=== PATIENT | male | born 1965 | race Caucasian/White ===

== ENCOUNTER 2022-03-16 06:38 | Outpatient (REF) | payer BC, SELFPAY ==
[2022-03-16 06:45] LABS: MANUAL DIFF FLAG NO
[2022-03-16 07:26] LABS: Basophils Percent Auto 0.5 % (0-2); Eosinophils Absolute Auto 0.2 X10*3/uL (0.0-0.4); Eosinophils Percent Auto 2.9 % (0-4); Hematocrit 43.4 % (42.0-52.0); Hemoglobin 15.2 g/dl (14.0-18.0); Imm Gran Abs Auto 0.02 X10*3/uL (0.00-0.03); Imm Gran Pct Auto 0.3 % (0.0-0.4); Lymphocytes Absolute Auto 1.6 X10*3/uL (1.2-4.9); Lymphocytes Percent Auto 25.3 % (20-40); Mean Corpuscular Hemoglobin 31.5 pg (27.0-33.0); Mean Corpuscular Volume 89.9 fL (80.0-98.0); Mean Platelet Volume 9.8 fL (9.4-12.4); Monocytes Absolute Auto 0.8 X10*3/uL (0.1-1.2); Monocytes Percent Auto 12.6 % (2-11); Neutrophils Absolute Auto 3.7 x10*3/uL (2.0-8.3); Neutrophils Percent Auto 58.4 % (45-73); Platelet Count 289 X10*3/uL (160-400); Red Blood Count 4.83 X10*6/uL (4.60-5.80); White Blood Count 6.3 X10*3/uL (4.8-10.8)
[2022-03-16 07:54] LABS: Alanine Aminotransferase 28 U/L (0-40); Albumin Level 4.5 g/dL (3.5-5.0); Alkaline Phosphatase 59 U/L (39-117); Anion Gap 11 (12-20); Aspartate Amino Transferase 23 U/L (5-37); Blood Urea Nitrogen 13 mg/dL (9-16); Calcium 9.1 mg/dL (8.4-10.2); Carbon Dioxide 27 mmol/L (22-29); Chloride 102 mmol/L (96-108); Cholesterol 271 mg/dL; Estimated Glomerular Filt Rate > 60; Glucose Fasting 96 mg/dL (60-99); HDL Cholesterol 61 mg/dL; LDL Cholesterol Calculated 191 mg/dl; Potassium 4.4 mmol/L (3.3-5.1); Sodium 136 mmol/L (135-145); Total Protein 6.9 g/dL (6.5-8.0); Triglycerides 98 mg/dL
[2022-03-16 08:17] LABS: Prostate Specific Antigen 1.44 ng/mL (<0.05-4.0); Vitamin D 25-OH Total 38.6 ng/mL (>30)
[2022-03-16 11:15] LABS: C Reactive Protein 1.24 mg/dL (< or = 0.50)
[2022-03-18 12:56] LABS: Lyme Abs Screen <0.90 index
== END 2022-03-16 06:39 | disposition home or self-care (01) ==
LOC: HO.LAB 06:38
PROVIDERS: PCP Internal Medicine; Visit Provider Internal Medicine
DX: Z00.00 Encounter for general adult medical examination without abnormal findings (principal); Z12.5 Encounter for screening for malignant neoplasm of prostate; R21 Rash and other nonspecific skin eruption; E55.9 Vitamin D deficiency, unspecified
CPT/HCPCS: 36415; 80053; 80061; 82306; 84153; 85025; 86140; 86617; 86618

== ENCOUNTER 2022-03-16 09:45 | Outpatient (REF) | payer BC, SELFPAY | END 2022-03-16 09:46 | disposition home or self-care (01) | LOC: HO.10HDL 09:45 | PROVIDERS: Visit Provider Internal Medicine | DX: Z13.89 Encounter for screening for other disorder (principal) ==

== ENCOUNTER 2023-05-31 06:10 | Outpatient (REF) | payer BC, SELFPAY ==
[2023-05-31 06:32] LABS: MANUAL DIFF FLAG NO
[2023-05-31 07:26] LABS: Basophils Absolute Auto 0.1 X10*3/uL (0.0-0.2); Basophils Percent Auto 1.2 % (0-2); Eosinophils Absolute Auto 0.1 X10*3/uL (0.0-0.4); Eosinophils Percent Auto 2.1 % (0-4); Hematocrit 45.2 % (42.0-52.0); Hemoglobin 15.8 g/dl (14.0-18.0); Imm Gran Abs Auto 0.02 X10*3/uL (0.00-0.03); Imm Gran Pct Auto 0.4 % (0.0-0.4); Lymphocytes Absolute Auto 1.8 X10*3/uL (1.2-4.9); Lymphocytes Percent Auto 36.8 % (20-40); Mean Corpuscular Hemoglobin 31.7 pg (27.0-33.0); Mean Corpuscular Volume 90.8 fL (80.0-98.0); Mean Platelet Volume 10.1 fL (9.4-12.4); Monocytes Absolute Auto 0.5 X10*3/uL (0.1-1.2); Monocytes Percent Auto 10.3 % (2-11); Neutrophils Absolute Auto 2.4 x10*3/uL (2.0-8.3); Neutrophils Percent Auto 49.2 % (45-73); Platelet Count 279 X10*3/uL (160-400); Red Blood Count 4.98 X10*6/uL (4.60-5.80); White Blood Count 4.8 X10*3/uL (4.8-10.8)
[2023-05-31 07:43] LABS: Alanine Aminotransferase 41 U/L (0-40); Albumin Level 4.6 g/dL (3.5-5.0); Alkaline Phosphatase 54 U/L (39-117); Anion Gap 13 (12-20); Aspartate Amino Transferase 33 U/L (5-37); Bilirubin Total 1.2 mg/dL (0.0-1.0); Blood Urea Nitrogen 13 mg/dL (9-16); Calcium 10.1 mg/dL (8.4-10.2); Carbon Dioxide 28 mmol/L (22-29); Chloride 102 mmol/L (96-108); Cholesterol 220 mg/dL (<200); Estimated Glomerular Filt Rate > 60; Glucose Fasting 93 mg/dL (60-99); HDL Cholesterol 70 mg/dL (>40); LDL Cholesterol Calculated 127 mg/dL (<100); Sodium 139 mmol/L (135-145); Triglycerides 115 mg/dL (<150)
[2023-05-31 07:58] LABS: Prostate Specific Antigen 1.54 ng/mL (<0.05-4.0)
== END 2023-05-31 06:11 | disposition home or self-care (01) ==
LOC: HO.LAB 06:10
PROVIDERS: PCP Internal Medicine; Visit Provider Internal Medicine
DX: E78.00 Pure hypercholesterolemia, unspecified (principal); R35.1 Nocturia; Z86.010 Personal history of colon polyps; Z12.5 Encounter for screening for malignant neoplasm of prostate
CPT/HCPCS: 36415; 80053; 80061; 84153; 85025

== ENCOUNTER 2023-06-10 08:51 | Outpatient (AMB) | payer BC, SELFPAY ==
--- NOTE | 2023-06-10 08:55 | MHC.OFFVIS ---
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 Patient reports pain started after bowling sometime around December early January. He rested his arm hoping his pain would subside however his pain continues. He feels a tightness in his forearm and occasional tingling in his fingers. At times his muscle will bulge out to the size of a baseball with certain movement/use of arm. 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 He states he has pain in his arm which is aggravated with lifting weight, running, or opening a can and alleviates with resting. He also c/o popping of his arm with moving a chair or opening a jar and he does experiences tightness in his forearm and occasional tingling in his fingers. He reports his muscles occasional bulging out to the size of a baseball with the use of his arm as well. [facility] Social History (Updated 06/10/23 @ 09:00 by RANULFO Donahue) Patient Tobacco Use Status: Never used Tobacco Current occupational status: employed Current occupation: [employer] right hand dominant Review of Systems Const All systems reviewed & are unremarkable except as noted in HPI and below Physical Exam Vital Signs: BMI result Body Mass Index 26.6 Const General: cooperative, healthy appearing, comfortable, no acute distress, well developed and alert Orientation/consciousness: patient oriented x3 HEENT Head: Yes normal to inspection, Yes normocephalic and Yes atraumatic Eyes General: appearance normal, both eyes and all related structures Resp Effort & Inspection: normal respiratory effort and able to speak in complete sentences Cardio Rate: regular rate Peripheral pulses: Peripheral pulses 2+ throughout GI Palpation (GI): Soft to palpation Skin Lesions: no lesions Rashes: no rashes Neuro General: patient oriented x3 Extrem Other: Right or Left or Bilateral shoulder normal to inspection. Mild tenderness over the bicep tendon with defect over the proximal aspect with notable muscle bulge. Forward flexion to 175, external rotation to 90, internal rotation to S1. 5/5 RTC strength. Positive Truman's. Negative Pablo and cross body abduction. NVI. Assessment & Plan Assessment & Plan (1) Biceps tendon tear: Code(s): S46.219A - Strain of muscle, fascia and tendon of other parts of biceps, unspecified arm, initial encounter Plan We had a lengthy discussion today about the extent of his injury. I did explain that with his injury onset which begin in January of this year, the tendon is likely retracted and scarred down to surrounding tissue. I do not feel it is necessary to undergo any type of surgical intervention as he should fully recover from this. I strongly encourage physical therapy to work on ROM and proper RTC and periscapular strengthening. I would expect that he would be able to get back to normal activities with limitations. If symptoms persist or worsens in 6 weeks, patient will contact the office for further evaluation, otherwise follow-up as needed. Orders: Orders PT Evaluation and Treatment Today S46.219A - Strain of muscle, fascia and tendon of other parts of biceps, unspecified arm, initial encounter Patient Instructions: Scribed for Nena Vaughan PA-C, by Redd Theodore medical records coordinator, on 06/10/2023 at 9:00 AM EST. INena PA-C, have personally reviewed and agree with the information entered by the scribe. Coding Level of Care Code New Pt Level 3 (63960) Diagnoses Biceps tendon tear S46.219A
[2023-06-10 08:59] VITALS: BMI 26.6
== END 2023-06-10 12:14 | disposition home or self-care (01) ==
PROVIDERS: PCP Internal Medicine; Visit Provider Physician Assistant
DX: S46.211A Strain of muscle, fascia and tendon of other parts of biceps, right arm, initial encounter (principal)
CPT/HCPCS: 99203

== ENCOUNTER → 2023-06-10 08:51 | Outpatient (BNVA) | payer BC, SELFPAY | PROVIDERS: PCP Internal Medicine; Visit Provider Physician Assistant ==

== ENCOUNTER 2023-06-24 10:23 | Outpatient (REF) | payer BC, SELFPAY ==
--- NOTE | ~2023-06-24 | MR_ITS ---
EXAMINATION: MR SHOULDER WITHOUT CONTRAST, RIGHT CLINICAL INFORMATION: Right shoulder pain following an injury on 01/26/2023. Weakness. Biceps popping. COMPARISON: Right shoulder radiographs dated 01/01/2009. TECHNIQUE: MRI of the shoulder without contrast was performed on a high-field scanner. FINDINGS: ROTATOR CUFF: Near complete, full-thickness tear of the supraspinatus tendon which is significantly attenuated. There may be a few thin posterior bursal surface tendon fibers remaining intact. Articular surface tearing extends to the anterior aspect of the infraspinatus tendon. Overall tearing appears to measure up to 3.6 x 4.3 cm (AP x ML) with the torn articular surface tendon fibers retracted to the glenohumeral articulation. No associated edema. Findings likely indicate a chronic tear. Mild subscapularis tendinosis. Mild supraspinatus muscle atrophy. BICEPS: Absence of the proximal long head biceps tendon, likely indicating a complete tear and tendon retraction. CORACOACROMIAL ARCH: The undersurface of the acromion is curved with no subacromial spur. Mild acromioclavicular osteoarthritis. LABRUM/CAPSULE: Heterogeneously increased T2 signal throughout the superior and posterosuperior labrum, likely indicating nondisplaced degenerative tearing. Somewhat linear increased T2 signal within the undersurface of the anterior and anteroinferior labrum, likely indicating a nondisplaced tear. Intact inferior joint capsule. GLENOHUMERAL JOINT/MARROW: Superior subluxation of the humeral head related to the rotator cuff tendon tear. Intact articular cartilage. Trace joint effusion. MR/MR shoulder RT wo con IMPRESSION: 1. Near-complete, full-thickness tear of the supraspinatus tendon with a few thin posterior bursal surface tendon fibers remaining intact. Articular surface tearing extends to the anterior aspect of the infraspinatus tendon. The torn articular surface tendon fibers are retracted to the glenohumeral articulation. Mild supraspinatus muscle atrophy. Mild subscapularis tendinosis. 2. Absence of the proximal long head biceps tendon, likely indicating a complete tear and tendon retraction. 3. Mild acromioclavicular osteoarthritis. 4. Nondisplaced degenerative tearing of the superior, posterosuperior, and anteroinferior labrum. 5. Superior subluxation of the humeral head related to the rotator cuff tendon tear. Trace glenohumeral joint effusion.
== END 2023-06-24 10:24 | disposition home or self-care (01) ==
LOC: HO.MRI 10:23
PROVIDERS: PCP Internal Medicine; Visit Provider Physician Assistant
DX: M75.80 Other shoulder lesions, unspecified shoulder (principal)
CPT/HCPCS: 73221

== ENCOUNTER 2023-07-08 12:34 | Outpatient (AMB) | payer BC, SELFPAY ==
--- NOTE | 2023-07-08 12:36 | MHC.OFFVIS ---
Intake Vital Signs 07/08/23 12:37 Height 5 ft 5 in Weight 160 lb BMI 26.6 Intake Visit Reasons: OV- RTC tendonitis, MRI review Intake Note: Deon is a 57 year old right hand dominant male who presents today for an MRI review of his right shoulder Allergies No Known Allergies Allergy (Verified 06/10/23 08:59) HPI OV- RTC tendonitis, MRI review HPI Details Deon is a 57 year old man who presents for an MRI review of his right shoulder. He complains of pain with daily activity, worse with overhead activity and at night. he says his pain began after an injury while bowling in 01/2023. 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 He says he re-injured his arm again recently while opening a bag of chips. He says he felt a painful popping sensation in his biceps and felt an increase in pain. He says he does have a Tray deformity in his arm, and has for several months now. He used to be active with weight-lifting when he was younger as well. He has several questions concerning surgery vs PT, and his level of function. [facility] Social History (Updated 06/10/23 @ 09:00 by Nhung Ackerman Prasanna) Patient Tobacco Use Status: Never used Tobacco Current occupational status: employed Current occupation: [employer] right hand dominant Review of Systems Const All systems reviewed & are unremarkable except as noted in HPI and below Physical Exam Vital Signs: BMI result Body Mass Index 26.6 Const General: no acute distress, alert and awake Orientation/consciousness: patient oriented x3 HEENT Head: Yes normocephalic and Yes atraumatic Eyes EOM: EOMs intact bilaterally Resp Effort & Inspection: normal respiratory effort and able to speak in complete sentences Cardio Jugular venous distension: no JVD Skin General skin exam: turgor normal Rashes: no rashes Neuro General: patient oriented x3 Extrem Other: Right Shoulder: TTP proximal biceps with + tray deformity 4+/5 EC Neg lift off -h/n Psych Appearance: grossly normal Affect: normal affect Attitude: cooperative Results Reviewed Results Reviewed: I personally reviewed relevant MR images 1. Near-complete, full-thickness tear of the supraspinatus tendon with a few thin posterior bursal surface tendon fibers remaining intact. Articular surface tearing extends to the anterior aspect of the infraspinatus tendon. The torn articular surface tendon fibers are retracted to the glenohumeral articulation. Mild supraspinatus muscle atrophy. Mild subscapularis tendinosis. 2. Absence of the proximal long head biceps tendon, likely indicating a complete tear and tendon retraction. 3. Mild acromioclavicular osteoarthritis. 4. Nondisplaced degenerative tearing of the superior, posterosuperior, and anteroinferior labrum. 5. Superior subluxation of the humeral head related to the rotator cuff tendon tear. Trace glenohumeral joint effusion. Assessment & Plan Assessment & Plan (1) Right rotator cuff tear: Code(s): M75.101 - Unspecified rotator cuff tear or rupture of right shoulder, not specified as traumatic Plan: This is a 57 year old man with a near-complete full-thickness tear of the right RTC, as well as a biceps tendon tear with retraction. he has pain with daily activity, worse with picking an object up, overhead activity, and at night. He denies any prior treatment options and feels limited in his ADLs. I discussed his diagnosis and treatment options. I recommend a right shoulder RTC repair. I also explained that his biceps is not repairable and that this will likely not result in any additional morbidity. I discussed the risks, benefits, and alternatives including, but not limited to, the risk of pain, infection, stiffness, need for further surgery as well as potential medical complications such as blood clots, pulmonary embolism and cardiac complications. I discussed the recovery timeline and process as well as the importance of PT. Deon is a good candidate for this surgery. Fill of seems on the fence regarding surgery and is incredulous that his rotator cuff is in need of repair and that his biceps tendon is unrepairable. He will consider his options and get back to me if you would like to discuss further or go forward with surgery. (2) Biceps tendon tear: Code(s): S46.219A - Strain of muscle, fascia and tendon of other parts of biceps, unspecified arm, initial encounter Plan: With Tray deformity Plan Scribed for Campbell Adrian MD by Aly Ayala, medical assistant supervisor, on 07/08/23 at 12:50 PM, EST. Coding Level of Care Code Est Pt Level 4 (82613) Diagnoses Right rotator cuff tear M75.101 Biceps tendon tear S46.219A
[2023-07-08 12:37] VITALS: BMI 26.6
== END 2023-07-08 13:21 | disposition home or self-care (01) ==
PROVIDERS: PCP Internal Medicine; Visit Provider Orthopaedic Surgery
DX: M75.101 Unspecified rotator cuff tear or rupture of right shoulder, not specified as traumatic (principal); S46.211A Strain of muscle, fascia and tendon of other parts of biceps, right arm, initial encounter
CPT/HCPCS: 99214

== ENCOUNTER → 2023-07-08 12:34 | Outpatient (BNVA) | payer BC, SELFPAY | PROVIDERS: PCP Internal Medicine; Visit Provider Orthopaedic Surgery ==

== ENCOUNTER 2023-07-19 06:01 | Day surgery (SDC) | payer BC, SELFPAY ==
--- NOTE | 2023-07-18 09:33 | P.CONAN_ITS ---
Documented by User: Jania Bello NP 07/18/23 09:33 HPI - Anesthesia Eval Consult details Narrative: 57yo M for Right Arthroscopic Rotator Cuff Repair [facility] Active Problems Active Problems: All Active Problems (Updated 07/08/23 @ 12:46 by Aly Ayala) Right rotator cuff tear (Acute) Rotator cuff tendonitis (Acute) Biceps tendon tear (Acute) Past Medical History Medical History (Updated 07/18/23 @ 13:17 by Clair Norris RN) Vitamin D deficiency Fatigue Hypercholesteremia History of colon polyps GERD (gastroesophageal reflux disease) Social History Social History (Updated 06/10/23 @ 09:00 by RANULFO Donahue) Patient Tobacco Use Status: Never used Tobacco Current occupational status: employed Current occupation: [employer] right hand dominant Meds Allergies Allergy/AdvReac Type Severity Reaction Status Date / Time No Known Allergies Allergy Verified 06/10/23 08:59 Home Medications Medication Instructions Recorded Confirmed Last Taken Type atorvastatin 20 mg tablet 20 mg PO DAILY 06/10/23 Unknown History Exam Pertinent Lab Results Pertinent Lab Results: Laboratory Tests 05/31/23 06:30 WBC 4.8 Hgb 15.8 Hct 45.2 Plt Count 279 Sodium 139 Potassium 4.0 Chloride 102 Carbon Dioxide 28 BUN 13 Creatinine 0.82 Assessment and Plan Assessment Anesthesia Assessment: Chart Reviewed Documented by User: Jong Shaw MD 07/18/23 19:31 [facility] Past Medical History Medical History (Updated 07/18/23 @ 13:17 by Clair Norris RN) Vitamin D deficiency Fatigue Hypercholesteremia History of colon polyps GERD (gastroesophageal reflux disease) Family History Family history of problems with anesthesia: No Surgical History History of Problems with Anesthesia: No Social History Social History (Updated 06/10/23 @ 09:00 by RANULFO Donahue) Patient Tobacco Use Status: Never used Tobacco Current occupational status: employed Current occupation: [employer] right hand dominant Meds Allergies Allergy/AdvReac Type Severity Reaction Status Date / Time No Known Allergies Allergy Verified 06/10/23 08:59 Home Medications Medication Instructions Recorded Confirmed Last Taken Type atorvastatin 20 mg tablet 20 mg PO DAILY 06/10/23 Unknown History Exam Airway Mallampati Class: II TM Dist: >3cm Neck ROM: Full Heart: rrr Lungs: cta Assessment and Plan Assessment Anesthesia Assessment: Anesthesia Plan Discussed Final Anesthetic Review Family History of Problems with Anesthesia: No History of Problems with Anesthesia: No NPO: Yes ASA Class: II Final Preanesthetic Review: No Changes in Pt Med Stat, Meds/Allgs Chart Reviewed, Consent Obtained/Reviewed and Anes Risks/Benef Reviewed Patient Risk: Intermediate Procedure Risk: Intermediate Anesthetic Plan Anesthetic Plan: GA and Agree w/ Assess. and Plan Disposition: Standard PACU
[2023-07-19] VITALS (7 sets, daily range): BP systolic 136–159; BP diastolic 79–86; PULSE 59–68; RESP 15–16; TEMP 36.1–36.6; O2SAT 92–98; BMI 27.0
[2023-07-19] MEDS: Lactated Ringers 1,000 ML 100 ML IVCONT (06:53)
--- NOTE | 2023-07-19 09:32 | PM.OP ---
Brief Operative Note Date of Service: 07/19/23 Pre-op diagnosis: Right rtc tear Post-op diagnosis: same Procedure: Right RTC repair Implants: Londono [employer] Nephew helacoil medial row 4,75 double loaded x 3 and 5.0 knotless lateral row x 3 Surgeon: Campbell Adrian MD Anesthesia: GETA and regional Was an Yard Labor Supervisor used for this Procedure?: Yes Yard Labor Supervisor: Nena Vaughan Estimated blood loss (mL): 20 Tourniquet time (min): 20 Pathology: none sent Condition: stable Disposition: PACU
--- NOTE | 2023-08-04 17:39 | W.PM.OPN ---
Operative Note Operative Note Date of Service: 07/19/23 Narrative: Date of Service: 07/19/23 Pre-op diagnosis: Right rtc tear Post-op diagnosis: same Procedure: Right RTC repair Implants: Londono and Nephew helacoil medial row 4,75 double loaded x 3 and 5.0 knotless lateral row x 3 Surgeon: Campbell Adrian MD Anesthesia: GETA and regional Was an Turf And Grounds Supervisor used for this Procedure?: Yes Turf And Grounds Supervisor: Nena Vaughan Estimated blood loss (mL): 20 Tourniquet time (min): 20 Pathology: none sent Condition: stable Disposition: PACU Procedure in detail: Patient was brought to the operating room and placed the the beach chair position. All bony prominences were well padded and the limb was prepped and draped in standard sterile fashion. A time out was called to identify proper site, proper procedure and proper surgeon. IV antibiotics per weight were administered. I began by making a posterolateral stab incision with a 15 blade. A blunt trochar was placed into the glenohumeral joint and I insufflated the joint with saline and a 30 degree arthroscope was placed. I established an outside- in anterior portal just distal to the biceps tendon. I then began my inspection of the glenohumeral joint. There was a absent biceps tendon. The cartilage and labral surfaces were pristine. There were minimal cartilage changes at the inferior glenoid without humeral head changes. There was a full thickness undersurface RTC tear. The subcapularis was intact. I then removed the trochar and entered the subacromial space. A direct lateral portal was then established and I performed a bursectomy. The cuff was then examined. There was a full thickness tear of the supra and infraspinatus without retraction. The tear was mobile. I placed two medial row double loaded anchors after using a tap just adjacent to the articular cartilage and then brought the suture limbs ( 8) through the medial cuff. I then debrided the bare area down to bleeding bone and, using a cross bridge configuration, brought 4 limbs to each of two lateral 5.0 anchors. This re-approximated the cuff anatomy anatomically. Once I was satisfied with the repair final images were captured and I removed all instrumentation. Portals were closed with nylon. Patient was placed in an abduction sling, extubated and brought to the recovery room in stable condition. There were no known complications. LARGE RTC REPAIR PROTOCOL
== END 2023-07-19 12:05 | disposition home or self-care (01) ==
PROVIDERS: PCP Internal Medicine; Visit Provider Orthopaedic Surgery
PROC: (CPT 29827; principal; 2023-07-19 07:30)
DX: M75.121 Complete rotator cuff tear or rupture of right shoulder, not specified as traumatic (principal); K21.9 Gastro-esophageal reflux disease without esophagitis; E78.00 Pure hypercholesterolemia, unspecified; E55.9 Vitamin D deficiency, unspecified
CPT/HCPCS: 29827; C1713; J0131; J0171; J0665; J0690; J1100; J1885; J2405; J2704

== ENCOUNTER → 2023-07-19 06:01 | Outpatient (BNV) | payer BC, SELFPAY | PROVIDERS: PCP Internal Medicine; Visit Provider Orthopaedic Surgery | DX: S46.011A Strain of muscle(s) and tendon(s) of the rotator cuff of right shoulder, initial encounter (principal) | CPT/HCPCS: 29827 ==

== ENCOUNTER 2023-07-25 12:54 | Outpatient (AMB) | payer BC, SELFPAY ==
--- NOTE | 2023-07-25 13:10 | A.OFFVIS_ITS ---
Intake Intake Visit Reasons: PO Rt RTC Repair 07/19/23 NE Intake Note: Deon 57 yr old male presents today for his P/O right RTC from 07/19/23. States his has some soreness and pain increase with movement. Over all doing well. Allergies No Known Allergies Allergy (Verified 07/25/23 13:11) HPI PO Rt RTC Repair 07/19/23 NE HPI Details 57-year-old male who returns to the [facility] today for post-op right RTC repair, 07/19/[address] Adrian. He states he has pain and soreness in his shoulder which is aggravated with movement. He has not yet started with physical therapy for his right shoulder. He is doing well overall and has no concerns today. [facility] Medical History (Updated 07/25/23 @ 14:58 by Nena Vaughan PA-C) Vitamin D deficiency Fatigue Hypercholesteremia History of colon polyps GERD (gastroesophageal reflux disease) Surgical History (Updated 07/19/23 @ 06:46 by Clair Norris RN) History of colonoscopy Patient Tobacco Use Status: Never used Tobacco Current occupational status: employed Current occupation: [employer] right hand dominant Review of Systems Const All systems reviewed & are unremarkable except as noted in HPI and below Physical Exam Extrem Other: Right shoulder: Incision clean, dry and intact. No swelling or drainage. He has good sensation. Results Reviewed Results Reviewed: Date of Service: 07/19/23 Pre-op diagnosis: Right rtc tear Post-op diagnosis: same Procedure: Right RTC repair Implants: Londono [employer] Nephew helacoil medial row 4,75 double loaded x 3 and 5.0 knotless lateral row x 3 Surgeon: Campbell Adrian MD Assessment & Plan Assessment & Plan (1) Right rotator cuff tear: Code(s): M75.101 - Unspecified rotator cuff tear or rupture of right shoulder, not specified as traumatic Qualifiers: Rotator cuff tear extent: complete Rotator cuff tear trauma status: nontraumatic Qualified Code(s): M75.121 - Complete rotator cuff tear or rupture of right shoulder, not specified as traumatic (2) Biceps tendon tear: Code(s): S46.219A - Strain of muscle, fascia and tendon of other parts of biceps, unspecified arm, initial encounter Plan Sutures removed today, steri strips applied. We thoroughly went through the postop images and discussed procedure in detail. He will begin physical therapy to work on ROM and periscapular stabilization. He will remain out of work till I see him back in [address] Adrian, sooner if needed. Medications: Refilled oxycodone Partial Fill upon patient request. 5 mg PO Q4H PRN 42 tabs 0RF pain 7 days Patient Instructions: Scribed for Nena Vaughan PA-C, by Redd Theodore spanish medical interpreter, on 07/25/2023 at 1:00 PM EST. I, Nena Vaughan PA-C, have personally reviewed and agree with the information entered by the scribe. Coding Level of Care Code Global (12607) Diagnoses Nontraumatic complete tear of right rotator cuff M75.121 Rotator cuff tear extent: complete Rotator cuff tear trauma status: nontraumatic Biceps tendon tear S46.219A
== END 2023-07-25 13:51 | disposition home or self-care (01) ==
PROVIDERS: PCP Internal Medicine; Visit Provider Physician Assistant
DX: M75.121 Complete rotator cuff tear or rupture of right shoulder, not specified as traumatic (principal); S46.219A Strain of muscle, fascia and tendon of other parts of biceps, unspecified arm, initial encounter
CPT/HCPCS: 99024

== ENCOUNTER → 2023-07-25 12:54 | Outpatient (BNVA) | payer BC, SELFPAY | PROVIDERS: PCP Internal Medicine; Visit Provider Physician Assistant ==

== ENCOUNTER 2023-08-24 10:43 | Outpatient (AMB) | payer BC, SELFPAY ==
--- NOTE | 2023-08-24 10:46 | A.OFFVIS_ITS ---
Intake Intake Visit Reasons: PO Rt RTC Repair 07/19/23 NE Intake Note: Deon monreal 57 year old male presents today for a post operative right RTC repair, DOS 07/19/23 NE. Patient reports his pain mostly comes after attending PT. He has concerns of a lot of pain in his bicep area. Allergies No Known Allergies Allergy (Verified 08/24/23 10:49) HPI PO Rt RTC Repair 07/19/23 NE HPI Details 57-year-old male who returns to the [facility] today for post-op right RTC repair, 07/19/[address] Adrian. He continues to have pain and weakness in his shoulder which mostly comes after attending physical therapy. He also c/o chronic pain in his bicep region. He also finds difficulty with moving around the bed trying to sit up. He takes ibuprofen for his pain. He is doing well otherwise and has no other concerns today. He has a computer desk job. [facility] Medical History (Updated 07/25/23 @ 14:58 by Nena Vaughan PA-C) Vitamin D deficiency Fatigue Hypercholesteremia History of colon polyps GERD (gastroesophageal reflux disease) Surgical History History of colonoscopy Social History Patient Tobacco Use Status: Never used Tobacco Current occupational status: employed Current occupation: [employer], [employer] right hand dominant Review of Systems Const All systems reviewed & are unremarkable except as noted in HPI and below Physical Exam Extrem Other: Right shoulder: Incision well healed. FF to 95, ER to 30. He has good sensation. Assessment & Plan Assessment & Plan (1) Right rotator cuff tear: Code(s): M75.101 - Unspecified rotator cuff tear or rupture of right shoulder, not specified as traumatic Qualifiers: Rotator cuff tear extent: complete Rotator cuff tear trauma status: nontraumatic Qualified Code(s): M75.121 - Complete rotator cuff tear or rupture of right shoulder, not specified as traumatic (2) Biceps tendon tear: Code(s): S46.219A - Strain of muscle, fascia and tendon of other parts of biceps, unsp ecified arm, initial encounter Plan He will continue to work with physical therapy. I reassured him that he is progressing at the expected rate he should be with his motion and strength. He has concerns about his proximal bicep, he feels that subluxes when he tries to do any type motion that require bare minimum of strength. I explain to him that this may be some scar tissue that has been formed over the proximal bicep tendon as it was torn and retracted for several month. I reassured him that progressing to strength train can help with this. He can discontinue use of sling and begin driving as long as he feels safe and comfortable. 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 I would like to see him back in [address] Adrian, sooner if needed. Patient Instructions: Scribed for Nena Vaughan PA-C, by [facility] representative, on 08/24/2023 at 11:00 AM EST. I, Nena Vaughan PA-C, have personally reviewed and agree with the information entered by the scribe. Coding Level of Care Code Global (31600) Diagnoses Nontraumatic complete tear of right rotator cuff M75.121 Rotator cuff tear extent: complete Rotator cuff tear trauma status: nontraumatic Biceps tendon tear S46.219A
== END 2023-08-24 11:18 | disposition home or self-care (01) ==
PROVIDERS: PCP Internal Medicine; Visit Provider Physician Assistant
DX: M75.121 Complete rotator cuff tear or rupture of right shoulder, not specified as traumatic (principal); S46.219A Strain of muscle, fascia and tendon of other parts of biceps, unspecified arm, initial encounter
CPT/HCPCS: 99024

== ENCOUNTER → 2023-08-24 10:43 | Outpatient (BNVA) | payer BC, SELFPAY | PROVIDERS: PCP Internal Medicine; Visit Provider Physician Assistant ==

== ENCOUNTER 2023-09-26 14:10 | Outpatient (AMB) | payer BC, SELFPAY ==
--- NOTE | 2023-09-26 14:24 | A.OFFVIS_ITS ---
Intake Intake Visit Reasons: PO Rt RTC Repair 07/19/23 NE Intake Note: Deon a 57 year old male presents today for a post operative right RTC repair, DOS 07/19/23 NE. 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 He was aking chili about 2 weeks ago, while breaking up mean in the bpan he felt a sharp twinge in the bicep, aroun this same time they started new exercises in PT so he is unsure of the cause. Patient reports that he is having pain that is felt all the time, he feels that he is regressing a bit. His pain is now limiting him in PT. Denies numbness and tingling Allergies No Known Allergies Allergy (Verified 08/24/23 10:49) HPI PO Rt RTC Repair 07/19/23 NE HPI Details Deon is a 57 year old man who presents ~9 weeks S/P right RTC repair. He says he has had worsening pain in the last few weeks. He is unsure if this is related to starting new exercises in PT or from home activities. He now complains of constant pain and he is worried he may be regressing in his progress. He denies any numbness and tingling, and feels limited in his ability to perform some exercises in PT. He has returned to work, 4 hours daily, full duty at a desk. He feels this is going well. [facility] Medical History (Updated 07/25/23 @ 14:58 by Nena Vaughan PA-C) Vitamin D deficiency Fatigue Hypercholesteremia History of colon polyps GERD (gastroesophageal reflux disease) Surgical History History of colonoscopy Social History Patient Tobacco Use Status: Never used Tobacco Current occupational status: employed Current occupation: [employer], [employer] right hand dominant Review of Systems Const All systems reviewed & are unremarkable except as noted in HPI and below Physical Exam Const General: no acute distress, alert and awake Orientation/consciousness: patient oriented x3 HEENT Head: Yes normocephalic and Yes atraumatic Eyes EOM: EOMs intact bilaterally Resp Effort & Inspection: normal respiratory effort and able to speak in complete sentences Cardio Jugular venous distension: no JVD Skin General skin exam: turgor normal Rashes: no rashes Neuro General: patient oriented x3 Extrem Other: subjective pain over anterior humerus/ biceps muscle belly Psych Appearance: grossly normal Affect: normal affect Attitude: cooperative Assessment & Plan Assessment & Plan (1) Right rotator cuff tear: Code(s): M75.101 - Unspecified rotator cuff tear or rupture of right shoulder, not specified as traumatic Qualifiers: Rotator cuff tear extent: complete Rotator cuff tear trauma status: nontraumatic Qualified Code(s): M75.121 - Complete rotator cuff tear or rupture of right shoulder, not specified as traumatic Plan: Increased pain after ramping up with PT. Needs to follow large RTC repair protocol. eems to be having idiopathic biceps cramping. (2) Biceps tendon tear: Code(s): S46.219A - Strain of muscle, fascia and tendon of other parts of biceps, unspecified arm, initial encounter Plan Prepared for Campbell Adrian MD by Aly Ayala, medical affairs specialist, on 09/26/23 at 2:37 PM, EST. Coding Level of Care Code Global (29325) Diagnoses Nontraumatic complete tear of right rotator cuff M75.121 Rotator cuff tear extent: complete Rotator cuff tear trauma status: nontraumatic Biceps tendon tear S46.219A
== END 2023-09-26 15:23 | disposition home or self-care (01) ==
PROVIDERS: PCP Internal Medicine; Visit Provider Orthopaedic Surgery
DX: M75.121 Complete rotator cuff tear or rupture of right shoulder, not specified as traumatic (principal); S46.219A Strain of muscle, fascia and tendon of other parts of biceps, unspecified arm, initial encounter
CPT/HCPCS: 99024

== ENCOUNTER → 2023-09-26 14:10 | Outpatient (BNVA) | payer BC, SELFPAY | PROVIDERS: PCP Internal Medicine; Visit Provider Orthopaedic Surgery ==

== ENCOUNTER 2023-10-27 14:53 | Outpatient (AMB) | payer BC, SELFPAY ==
--- NOTE | 2023-10-27 14:59 | MHC.OFFVIS ---
Intake Intake Visit Reasons: ov- Rt RTC Repair 07/19/23 NE Intake Note: Deon a 57 year old male presents today for a post operative right RTC repair, DOS 07/19/23 NE. At his last visit it was dicussed that he must follow RTC physical therapy protocol Allergies No Known Allergies Allergy (Verified 08/24/23 10:49) HPI ov- Rt RTC Repair 07/19/23 NE HPI Details Deon is a 57 year old man who presents ~13 weeks S/P right RTC repair. He says he has been doing better with the change in PT protocol. [facility] Medical History Vitamin D deficiency Fatigue Hypercholesteremia History of colon polyps GERD (gastroesophageal reflux disease) Surgical History History of colonoscopy Social History Patient Tobacco Use Status: Never used Tobacco Current occupational status: employed Current occupation: [employer], [email or web address] right hand dominant Review of Systems Const All systems reviewed & are unremarkable except as noted in HPI and below Physical Exam Const General: no acute distress, alert and awake Orientation/consciousness: patient oriented x3 HEENT Head: Yes normocephalic and Yes atraumatic Eyes EOM: EOMs intact bilaterally Resp Effort & Inspection: normal respiratory effort and able to speak in complete sentences Cardio Jugular venous distension: no JVD Skin General skin exam: turgor normal Rashes: no rashes Neuro General: patient oriented x3 Extrem Other: No pain with ROM Psych Appearance: grossly normal Affect: normal affect Attitude: cooperative Assessment & Plan Assessment & Plan (1) Right rotator cuff tear: Code(s): M75.101 - Unspecified rotator cuff tear or rupture of right shoulder, not specified as traumatic Qualifiers: Rotator cuff tear extent: complete Rotator cuff tear trauma status: nontraumatic Qualified Code(s): M75.121 - Complete rotator cuff tear or rupture of right shoulder, not specified as traumatic Plan: Large RTC tear Continue PT and HEP No heavy lifting (2) Biceps tendon tear: Code(s): S46.219A - Strain of muscle, fascia and tendon of other parts of biceps, unspecified arm, initial encounter Plan Prepared for Campbell Adrian MD by Aly Ayala, medical doctor nuclear medicine, on 10/27/23 at 3:02 PM, EST. Coding Level of Care Code Global (78983) Diagnoses Nontraumatic complete tear of right rotator cuff M75.121 Rotator cuff tear extent: complete Rotator cuff tear trauma status: nontraumatic Biceps tendon tear S46.219A
== END 2023-10-27 15:35 | disposition home or self-care (01) ==
PROVIDERS: PCP Internal Medicine; Referring Provider Internal Medicine; Visit Provider Orthopaedic Surgery
DX: S46.011D Strain of muscle(s) and tendon(s) of the rotator cuff of right shoulder, subsequent encounter (principal)
CPT/HCPCS: 99213

== ENCOUNTER → 2023-10-27 14:53 | Outpatient (BNVA) | payer BC, SELFPAY | PROVIDERS: PCP Internal Medicine; Visit Provider Orthopaedic Surgery ==

== ENCOUNTER 2023-12-01 12:46 | Outpatient (AMB) | payer BC, SELFPAY ==
--- NOTE | 2023-12-01 12:58 | MHC.OFFVIS ---
Intake Intake Visit Reasons: O/V Rt RTC Repair 07/19/23 NE Intake Note: Deon a 57 year old male presents today for a post operative right RTC repair, DOS 07/19/23 NE. at his last visit he was instructed to continue PT and do no heavy lifting. 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 He was working his night job holding a shoe box when he heard or felt a pop in his right shoulder. He had difficulty abducting his arm the following day but continue with physical therapy and it has improved but he was a little worried about injuring the remaining head of the proximal biceps. [facility] Medical History Vitamin D deficiency Fatigue Hypercholesteremia History of colon polyps GERD (gastroesophageal reflux disease) Surgical History History of colonoscopy Social History Patient Tobacco Use Status: Never used Tobacco Current occupational status: employed Current occupation: [employer] right hand dominant Physical Exam Extrem Other: Smooth arc of abduction to 90 degrees with negative empty can Assessment & Plan Assessment & Plan (1) S/P rotator cuff repair: Code(s): Z98.890 - Other specified postprocedural states Plan: Status post rotator cuff repair. A large repair and is doing well. On exam I am pleased with his progress and recommend he continue strengthening gradually add. (2) Biceps tendon tear: Code(s): S46.219A - Strain of muscle, fascia and tendon of other parts of biceps, unspecified arm, initial encounter Plan: Patient has a an absent long head of the biceps and I do not think he injured the short head. Continue therapy as tolerated. He has a follow-up scheduled. Coding Level of Care Code Est Pt Level 3 (83799) Diagnoses S/P rotator cuff repair Z98.890 Biceps tendon tear S46.219L
== END 2023-12-01 15:00 | disposition home or self-care (01) ==
PROVIDERS: PCP Internal Medicine; Referring Provider Internal Medicine; Visit Provider Orthopaedic Surgery
DX: S46.211A Strain of muscle, fascia and tendon of other parts of biceps, right arm, initial encounter (principal)
CPT/HCPCS: 99213

== ENCOUNTER → 2023-12-01 12:46 | Outpatient (BNVA) | payer BC, SELFPAY | PROVIDERS: PCP Internal Medicine; Visit Provider Orthopaedic Surgery ==

== ENCOUNTER 2023-12-08 17:00 | Outpatient (RCR) | payer BC, SELFPAY ==
--- NOTE | 2023-07-29 12:41 | MHC.PT.EP ---
[facility] [place] Office [place] Office [place] Office [address] Greg Smith [address] [phone] F: [phone] F: [phone] F: [phone] F: [phone] Physical Therapy Plan of Care Date of Evaluation: 07/28/23 Date of Surgery: 07/19/23 Diagnosis: s/p massive rtc repair - supraspinatus with sad on 07/19 (RL) Assessment: pt is a 57 y/o male presenting to physical therapy w/ referring diagnosis of s/p massive rtc repair - supraspinatus with sad. Impairments include pain, decreased range of motion, decreased strength, impaired functional mobility, impaired postural awareness, and altered ambulation mechanics. pt is a good candidate for skilled PT due to age, potential remediation of impairments, typical disease/condition progression and prognosis, comorbidities, and motivation. pt would benefit from skilled PT intervention to provide a tailored strengthening and stretching exercise program, functional training, gait training, postural re-training, neuromuscular re-education, modalities as needed for pain, equipment safety demonstration. Frequency and Duration: The patient will be seen 2x/wk for 8 wks Short Term Goals: pt will be I w/ HEP to promote self-management of condition. pt will improve R shoulder flexion PROM by 20 degrees to progress per protocol. Machine Operator Packaging Goals: pt will improve R shoulder strength to at least 4/5 in all planes to promote return to upper body ADLs. pt will report a statistically significant improvement in self-reported outcome measure, SPADI, to promote return to PLOF. Treatment Plan: Modalities to reduce pain, spasms and effusion. Manual therapy to restore motion and function. Therapeutic exercise to improve strength and flexibility. Neuromuscular re-education for posture and balance. Therapeutic activities to return to functional activities of daily living. Electronically signed by: Giselle Anton PT, DPT Please sign and return to therapist. Thank you for your referral.
--- NOTE | 2023-12-30 10:16 | MHC.PT.DC ---
[facility] [place] [facility] [place] [facility] [place] [facility] [address] Greg Smith [address] [phone] F: [phone] F: [phone] F: [phone] F: [phone] Physical Therapy Discharge Report Diagnosis: s/p massive rtc repair - supraspinatus with sad on 07/19 (RL) Date of Surgery: 07/19/23 Date of Evaluation: 07/28/23 Date of Discharge: 12/30/23 Treatments to Date: 32 Cancellations to Date: 4 No Shows to Date: 0 Discharge Status: Improved Function Independent with HEP Discharge Summary: Per last treatment note on 12/08/23: Deon was able to joss increased CKC shld pressure in tripod pos today and in 30* standing angle into TRX performing controlled [id number] circles w/o px or instability. At this time, he is independent with his HEP and was instructed on proper lifting mechanics. He is discharged from this PT POC. Electronically signed by: Giselle Anton PT, DPT Please sign and return to therapist. Thank you for your referral.
== END 2023-12-30 10:16 | disposition home or self-care (01) ==
LOC: HO.PT 17:00
PROVIDERS: PCP Internal Medicine; Visit Provider Physician Assistant
DX: M75.101 Unspecified rotator cuff tear or rupture of right shoulder, not specified as traumatic (principal)
CPT/HCPCS: 97110; 97112; 97140; 97162; 97530

== ENCOUNTER 2024-04-04 16:03 | Outpatient (REF) | payer BC, SELFPAY ==
--- NOTE | ~2024-04-04 | XR_ITS ---
EXAMINATION: XR KNEE, RIGHT CLINICAL INFORMATION: RIGHT KNEE PAIN-RULE OUT OA COMPARISON: None TECHNIQUE: 4 views of the knee FINDINGS: No acute fracture or dislocation. Joint spaces are maintained. No joint effusion. Atherosclerotic vascular calcification. XR/XR knee RT 4V IMPRESSION: * No acute osseous abnormality. * Joint spaces are maintained without significant degenerative change. Electronically signed by: Genevieve Prieto MD 05/09/2024 12:43 PM EDT
[2024-04-04 16:42] LABS: MANUAL DIFF FLAG NO
[2024-04-04 17:12] LABS: Appearance Urine Clear; Color Urine Yellow; Glucose Urine UA Negative (Negative); Leukocyte Esterase Urine Negative (Negative); Nitrite Urine Negative (Negative); PH 6.5 (5.0-9.0); Urine Blood Negative (Negative); Urine Ketones Negative (Negative); Urine Protein Negative (Neg-Trace)
[2024-04-04 17:37] LABS: Basophils Absolute Auto 0.1 X10*3/uL (0.0-0.2); Basophils Percent Auto 0.9 % (0-2); Eosinophils Absolute Auto 0.1 X10*3/uL (0.0-0.4); Eosinophils Percent Auto 0.9 % (0-4); Hematocrit 44.1 % (42.0-52.0); Hemoglobin 15.5 g/dl (14.0-18.0); Imm Gran Abs Auto 0.02 X10*3/uL (0.00-0.03); Imm Gran Pct Auto 0.3 % (0.0-0.4); Lymphocytes Percent Auto 26.1 % (20-40); Mean Corpuscular HGB Conc 35.1 g/dl (31.0-36.0); Mean Corpuscular Hemoglobin 31.6 pg (27.0-33.0); Mean Platelet Volume 9.7 fL (9.4-12.4); Monocytes Absolute Auto 0.6 X10*3/uL (0.1-1.2); Monocytes Percent Auto 8.1 % (2-11); Neutrophils Absolute Auto 4.8 x10*3/uL (2.0-8.3); Neutrophils Percent Auto 63.7 % (45-73); Platelet Count 322 X10*3/uL (160-400); Red Cell Distribution Width 12.3 % (11.0-16.0); White Blood Count 7.6 X10*3/uL (4.8-10.8)
[2024-04-04 17:45] LABS: Alanine Aminotransferase 51 U/L (0-40); Albumin Level 4.7 g/dL (3.5-5.0); Alkaline Phosphatase 58 U/L (39-117); Anion Gap 13 (12-20); Aspartate Amino Transferase 27 U/L (5-37); Bilirubin Total 0.6 mg/dL (0.0-1.0); Blood Urea Nitrogen 12 mg/dL (9-16); C Reactive Protein 0.27 mg/dL (< or = 0.50); Calcium 10.3 mg/dL (8.4-10.2); Carbon Dioxide 27 mmol/L (22-29); Chloride 104 mmol/L (96-108); Estimated Glomerular Filt Rate > 60; Glucose Random 97 mg/dL (60-115); Lipase 23 U/L (8-78); Potassium 3.8 mmol/L (3.3-5.1); Sodium 140 mmol/L (135-145); Total Protein 7.1 g/dL (6.5-8.0)
== END 2024-04-04 16:04 | disposition home or self-care (01) ==
LOC: HO.LAB 16:03
PROVIDERS: PCP Internal Medicine; Visit Provider Internal Medicine
DX: R19.4 Change in bowel habit (principal); R11.0 Nausea; M25.561 Pain in right knee
CPT/HCPCS: 36415; 73564; 80053; 81003; 82550; 83690; 85025; 86140

== ENCOUNTER 2024-04-27 08:17 | Outpatient (REF) | payer BC, SELFPAY ==
--- NOTE | ~2024-04-27 | US_ITS ---
EXAMINATION: US ABDOMEN COMPLETE CLINICAL INFORMATION: Elevated LFTs. COMPARISON: CT chest, abdomen and pelvis 09/14/2020. TECHNIQUE: Real-time imaging of the abdominal viscera. Technically limited study secondary to bowel gas and body habitus. FINDINGS: PANCREAS: Pancreatic head and body are unremarkable, tail is obscured. ABDOMINAL AORTA: The proximal, mid, and distal segments are normal in caliber. INFERIOR VENA CAVA: Visualized portions are normal. LIVER: Normal. The liver is normal in size. The liver contour is normal. Parenchymal echogenicity is normal. No focal hepatic lesion. There is no intrahepatic biliary duct dilatation seen. GALLBLADDER: Normal. The gallbladder is physiologically distended without evidence of stones, sludge, polyps, wall thickening or pericholecystic fluid. COMMON BILE DUCT: Normal in caliber measuring 0.3 cm in diameter. RIGHT KIDNEY: Normal. No hydronephrosis. No renal calculi or focal parenchymal lesions. The kidney measures 11.5 cm in maximum dimension. LEFT KIDNEY: Normal. No hydronephrosis. No renal calculi or focal parenchymal lesions. The kidney measures 11.1 cm in maximum dimension. SPLEEN: Not seen. FREE FLUID: None. US/US abdomen complete IMPRESSION: Nonvisualization of the spleen. Unremarkable appearing spleen identified on 09/14/[address] Clinical correlation is advised. No acute intra-abdominal process recognized. Electronically signed by: Sandy Pérez MD 05/01/2024 12:51 PM EDT
== END 2024-04-27 08:18 | disposition home or self-care (01) ==
LOC: HO.US 08:17
PROVIDERS: PCP Internal Medicine; Visit Provider Internal Medicine
DX: R74.01 Elevation of levels of liver transaminase levels (principal)
CPT/HCPCS: 76700

== ENCOUNTER → 2024-09-25 08:46 | Outpatient (RCR) | payer BC, SELFPAY ==
--- NOTE | 2023-06-21 09:51 | MHC.PT.EP ---
[facility] [place] Office [place] Office [place] Office [address] Greg Smith [address] [phone] F: [phone] F: [phone] F: [phone] F: [phone] Physical Therapy Plan of Care Date of Evaluation: 06/20/23 Date of Surgery: Diagnosis: Strain of muscle of R biceps. Assessment: Pt is a 57 y/o male referred to PT for eval and treat of R biceps strain with initial injury occurring in the beginning of January while bowling which is resulting in decreased tolerance for lifting objects of weight, placing objects on a high shelf, as well as pushing and pulling with his R arm secondary to decreased R shoulder and forearm strength, decreased posture, mild TTP of , R biceps, R Mina deformity, and pain. Pt is deemed an appropriate candidate to receive skilled PT services to address his physical impairments and maximize his function. Frequency and Duration: The patient will be seen 2x/ wk x 5 wks Short Term Goals: Initiate home program. Improve pain with activity. to < 3/10; initial 8/10. Correction Goals: Pt will be able to place objects on high shelf with managed Sx. Pt will be able to push and pull objects of weight with managed sx. Improve R elbow flexion MMT by at least 1/2 MMT grade; initial 4-/5. Improve SPADI outcome measure byt at least 13 points. Treatment Plan: Modalities to reduce pain, spasms and effusion. Manual therapy to restore motion and function. Therapeutic exercise to improve strength and flexibility. Neuromuscular re-education for posture and balance. Therapeutic activities to return to functional activities of daily living. Electronically signed by: Cristopher Cates PT. Please sign and return to therapist. Thank you for your referral.
== END | disposition home or self-care (01) ==
LOC: HO.PT 06-20 12:54
PROVIDERS: PCP Internal Medicine; Visit Provider Physician Assistant
DX: S46.211A Strain of muscle, fascia and tendon of other parts of biceps, right arm, initial encounter (principal)
CPT/HCPCS: 97110; 97161; 97530

== ENCOUNTER 2025-04-30 08:21 | Outpatient (AMB) | payer BC, SELFPAY ==
--- NOTE | 2025-04-30 08:27 | A.OFFPC_ITS ---
Vital Signs 04/30/25 08:31 04/30/25 08:59 Height 5 ft 5 in Weight 79.832 kg BMI 29.3 BP 180/104 H 154/90 H Respiration 16 Pulse 60 Pulse Source Pulse Oximeter Temp 97.9 F Temp Source Temporal Artery Scan Pulse Oximetry (%) 98 Oxygen Delivery Method Room Air Intake Visit Reasons: Annual / Dr King - see comments Core Baker Required: No Accompanied by: Self / Same As Patient Allergies Poison Gabby Allergy (Severe, Uncoded 04/30/25 08:29) Hives Medication List - Last Reconciled 04/30/25 by SAMSON Mckoy atorvastatin 20 mg PO DAILY losartan 25 mg PO BEDTIME sildenafil 25 mg PO DAILY PRN Tobacco use date assessed: 04/30/25 Dental Screening Dental Screen Date: 04/30/25 Did you have a dental visit in the last 12 months?: Yes Did you have a dental problem in the last 6 months where you did not have access to dental care?: No Was dental information given to patient?: No HPI HPI Comments History of Present Illness Details Lives alone with 2 cats and feels safe there. Works a a [employer] as well as a [employer]. Working about 50 hours per work and is unable to reduce hours to to financials. He does greatly enjoy hiking but is unable to do this as much as he would like due to his work hours. He reports he does follow a healthy diet, making most of his meals. He does consume alcohol in excess, 20 beers per week, typically with the majority of his alcohol consumed on the weekends, up to 6 beers and a setting. No history of cigarette smoking. No illicit drug use or marijuana use. Erectile dysfunction-he reports that he has sildenafil but has not been active sexually recently Elevated blood pressures-no prior history of hypertension. However initial bloo d pressure 180/104 and repeat 154/90 on manual recheck. Hyperlipidemia-compliant with atorvastatin Vitamin-D deficiency-not taking supplement Concerns: History of right rotator cuff tear/tendinitis as well as right biceps tendon tear. He did have arthroscopy for rotator cuff repair but reports bicep tendon was unable to be repaired due to duration since injury. He is still experiencing pain multiple times in the right arm at the site of the biceps tendon. He reports he gets spasm in the right upper extremity multiple times day and finds it difficult to perform activities with his right arm. He has right arm done for Insomnia-able to fall asleep but wakes up multiple times a night. He does not feel this is related to nocturia. Denies anxiety Health maintenance: Last screening colonoscopy 06/2018 with 5 year follow-up advised. Dr. Newberry Due for PSA Has never been to the eye doctor Goes to dentist twice yearly Usually wear sunscreen for prolonged sun exposure Reviewed past medical, social, surgical, family history ROS: General: No fevers, malaise, unintentional weight loss HEENT: No blurred vision, diplopia. No sore throat, nasal congestion, rhinorrhea, sinus pain, ear pain. No hearing loss Neck - no adenopathy Cardiovascular: No chest pain, palpitations, or leg edema Respiratory: No shortness of breath, wheezing, cough GI: No dysphagia, odynophagia, globus sensation. No abdominal pain, nausea, vomiting, diarrhea, constipation, melena, hematochezia : No dysuria, hematuria, increased urinary frequency, decreased urinary output. No testicular swelling or pain. No penile discharge MSK: No myalgia, back pain, arthralgias. see hpi Neuro: No headaches, weakness, paresthesias Psych: no depression/anxiery. No AH/VH. No SI/HI. see hpi Skin: No rashes or lesions EXAM: Constitutional - Awake and Alert, No apparent distress Eyes - PERRLA, EOMI. Anicteric Ears - external ears normal, canals clear, TMs intact and pearly conklin with good cone of light Nose- septum midline, nares clear, no sinus tenderness Mouth/throat- mucosa moist, tongue and uvula midline, no erythema/edema or tonsillar adenopathy. Neck-trachea midline, thyroid symmetric without palpable nodules, no adenopathy Cardiovascular - S1S2, RRR, No edema Respiratory - Normal lung expansion, Normal respiratory effort, No respiratory distress, CTA bilaterally Gastrointestinal - NT / ND; +BS; No rebound or guarding - No CVA tenderness Extremities - no calf tenderness bilaterally, no swelling Musculoskeletal - Normal inspection, normal ROM Skin - Warm/Dry, no concerning lesions Neurological - Alert & oriented x3, CN II-XII in tact, 5/5 strength BUE and BLE, 2+ patellar reflexes, sensation intact Psychological - Appropriate affect [facility] Medical History (Updated 04/30/25 @ 09:21 by SAMSON Mckoy) Hypertension Vitamin D deficiency Fatigue Hypercholesteremia History of colon polyps GERD (gastroesophageal reflux disease) Surgical History S/P rotator cuff repair History of colonoscopy (~07/06/18) Family History Mother No pertinent past medical history Paternal Grandfather Lung cancer Father No pertinent past medical history Social History Housing: House Patient Tobacco Use Status: Never used Tobacco e-Cigarette/Vaping Use: Never Used service: Yes ([employer]) Current occupational status: employed Current occupation: [employer], [address] right hand dominant Cognitive needs: No Hearing needs: No Vision needs: Yes (Reading glasses) Questionnaire PHQ-9 Over the last 2 weeks, how often have you been bothered by any of the following problems? 1. Little interest or pleasure in doing things: several days 2. Feeling down, depressed, or hopeless: several days 3. Trouble falling or staying asleep, or sleeping too much: nearly every day 4. Feeling tired or having little energy: more than half the days 5. Poor appetite or overeating: not at all 6. Feeling bad about yourself - or that you are a failure or have let yourself or your family down: more than half the days 7. Trouble concentrating on things, such as reading the newspaper or watching television: not at all 8. Moving or speaking so slowly that other people could have noticed. Or the opposite - being so fidgety or restless that you have been moving around a lot more than usual: not at all 9. Thoughts that you would be better off or of hurting yourself in some wa y: several days Total score: 10 Depression Screening Interpretation: Positive Depression Screening Done: Yes 34033 - PHQ-9 Billing: Yes Source: Developed by Drs. Kulwinder Mccord, Concepción Hernandez, Long Sinclair and colleagues, with an educational byron from [email or web address]. Thrive Questionnaire I am a: Patient What is your living situation today?: I have a steady place to live Within the past 12 months, did the food you bought not last and you didn't have the money to get more?: Never true Within the past 12 months, did you worry whether your food would run out before you got money to buy more?: Never true Do you have trouble paying for medicines?: No Do you have trouble getting transportation to medical appointments?: No Do you have trouble paying your heating and electricity bill?: No Do you have trouble taking care of your child, family member or friend?: No Do you have trouble with day-to-day activities such as bathing, preparing meals, shopping, managing finances, etc.?: No Are you currently unemployed and looking for a job?: No Are you interested in more education?: No THRIVE Score: 0 PETER-7 AMB Questionnaire PETER-7 Feeling nervous, anxious, or on edge: 1 = Several days Not being able to stop or control worryin = Several days Worrying too much about different things: 1 = Several days Trouble relaxin = Several days Being so restless that it is hard to sit still: 1 = Several days Becoming easily annoyed or irritable: 1 = Several days Feeling afraid as if something awful might happen: 1 = Several days Total PETER-7 score (0-4 normal; 5-9 mild; 10-14 moderate; 15-21 severe): 7 Source: Developed by Drs. Kulwinder Mccord, Concepción Hernandez, Long Sinclair and colleagues, with an educational byron from [email or web address]. PETER-7 Assessment Billing PETER-7 Assessment Tool: PETER-7 Assessment 23099 Physical exam (Primary Care) Vital Signs: Last Vital Signs Temp 97.9 F 04/30/25 08:31 Pulse 60 04/30/25 08:31 Resp 16 04/30/25 08:31 BP 154/90 H 04/30/25 08:59 Pulse Ox 98 04/30/25 08:31 Oxygen Delivery Method Room Air 04/30/25 08:31 BMI result Body Mass Index 29.3 Tobacco/Smoking Status: Tobacco use Status Tobacco use date assessed 04/30/25 04/30/25 08:33 Patient Tobacco Use Status Never used Tobacco 04/30/25 08:33 e-Cigarette/Vaping Use Never Used 04/30/25 08:33 Depression Screening Interpretation: Positive Coding Level of Care Code Est Pt Level 4 (91064) New Pt Prev Care 40-64y(17412) Diagnoses Routine medical exam Z00.00 Hypercholesteremia E78.00 Vitamin D deficiency E55.9 Biceps tendon tear S46.219A Insomnia G47.00 Alcohol consumption binge drinking F10.10 Hypertension I10 Additional Codes PHQ-9 - 00415 - PHQ-9 Billing: Yes ([id number]) PETER-7 Assessment Billing - PETER-7 Assessment Tool: PETER-7 Assessment 35607 ([id number]) Assessment & Plan Assessment & Plan (1) Routine medical exam: Code(s): Z00.00 - Encounter for general adult medical examination without abnormal findings Plan: 59-year-old male presenting for annual physical exam. Plan as below (2) Hypercholesteremia: Code(s): E78.00 - Pure hypercholesterolemia, unspecified Category: Medical Plan: Lipid panel ordered. Continue atorvastatin, dose to be adjusted as indicated. Recommend diet lower in saturated fats and highly processed foods. Weight loss efforts encouraged. (3) Vitamin D deficiency: Code(s): E55.9 - Vitamin D deficiency, unspecified Category: Medical Plan: Check vitamin-D level (4) Biceps tendon tear: Code(s): S46.219A - Strain of muscle, fascia and tendon of other parts of biceps, unspecified arm, initial encounter Category: Medical Plan: XR of the right shoulder ordered. Referral to orthopedics ordered (5) Insomnia: Code(s): G47.00 - Insomnia, unspecified Category: Medical Plan: Trial trazodone. Counseled on side effects and dosing (6) Alcohol consumption binge drinking: Code(s): F10.10 - Alcohol abuse, uncomplicated Category: Social Hx Plan: Counseled on decreasing the amount of alcohol he is consuming. Recommend no more than 2-3 alcoholic beverages in a sitting and no more than 14 alcoholic beverages in a week (7) Hypertension: Code(s): I10 - Essential (primary) hypertension Category: Medical Plan: Newly diagnosed. Prescribed losartan 25 mg daily. Consult on dosing and side effects. Plan Follow-up in the office in 2 weeks for blood pressure check and follow-up on insomnia Routine screening labs as ordered below Continue with screening colonoscopies and PSA Continue following for annual skin exams and use sun protection Annual eye exams Wear seat belt in car Recommend regular exercise and healthy diet Dental exams twice yearly Orders: Orders Liver Panel Today E55.9 - Vitamin D deficiency, unspecified, E78.00 - Pure hypercholesterolemia, unspecified, Z00.00 - Encounter for general adult medical examination without abnormal findings Prostate Specific Antigen Today E55.9 - Vitamin D deficiency, unspecified, E78.00 - Pure hypercholesterolemia, unspecified, Z00.00 - Encounter for general adult medical examination without abnormal findings XR shoulder RT min 2V Today M75.80 - Other shoulder lesions, unspecified shoulder, S46.219A - Strain of muscle, fascia and tendon of other parts of biceps, unspecified arm, initial encounter Basic Metabolic Panel Today E55.9 - Vitamin D deficiency, unspecified, E78.00 - Pure hypercholesterolemia, unspecified, Z00.00 - Encounter for general adult medical examination without abnormal findings Lipid Panel Today E55.9 - Vitamin D deficiency, unspecified, E78.00 - Pure hypercholesterolemia, unspecified, Z00.00 - Encounter for general adult medical examination without abnormal findings Vitamin D 25-OH Total Today E55.9 - Vitamin D deficiency, unspecified, E78.00 - Pure hypercholesterolemia, unspecified, Z00.00 - Encounter for general adult medical examination without abnormal findings Complete Blood Count Auto Diff Today E55.9 - Vitamin D deficiency, unspecified, E78.00 - Pure hypercholesterolemia, unspecified, Z00.00 - Encounter for general adult medical examination without abnormal findings Referrals Orthopedics Referral M75.80 - Other shoulder lesions, unspecified shoulder, S46.219A - Strain of muscle, fascia and tendon of other parts of biceps, unspecified arm, initial encounter Medications: New trazodone 25 - 50 mg (0.5 - 1 x 50 mg) PO BEDTIME PRN 90 tabs 0RF sleep losartan 25 mg PO DAILY 90 tabs 1RF losartan 25 mg PO BEDTIME 90 tabs 1RF
[2025-04-30 08:31] VITALS: BP 180/104; PULSE 60; RESP 16; TEMP 36.6; O2SAT 98; BMI 29.3
[2025-04-30 08:59] VITALS: BP 154/90
--- OUTSIDE RECORDS SUMMARY | 2025-04-30 09:00 | XMS_ITS | Patient Health Record ---
Author Organization [facility] Address [address] [place] [address] Care Team Providers Care Heel Layer Name Role Phone Christine (RETIRED) Ziggy TOTH Primary Care Provide r Unavailable Kulwinder Newberry Unavailable [phone] Reason For Referral No Information Medications Medication SIG (Take, Route, Fr equency, Duration) Notes Start Date End Date Status Vitamin D 1000 UNIT 1 tablet Orally Once a day Active Social History Tobacco Use: Social History Observation Description Date Details (start date - stop date) Never Smoker NA - NA Tobacco Use/Smoking Question Answer Notes Patient is a nonsmoker Alcohol Screen Question Answer Notes Did you have a drink contain ing alcohol in the past year? Yes How often did you have a dri nk containing alcohol in the past year? 4 or more times a week (4 points) How many drinks did you have on a typical day when you were drinking in the past year? 1 or 2 drinks (0 point) How often did you have 6 or more drinks on one occasion in the past year? Never (0 point) Points 4 Interpretation Positive Section Notes: Nonsmoker; 2 beers QD Problems Problem Type SNOMED Code ICD Code Onset Dates Problem Status W/U Status Risk Notes Problem [id number] Encounter for screening for malignant neoplasm of colon (Z12.11) Active confirmed Problem [id number] Preprocedural examination (Z01.818) Active confirmed Plan Of Treatment Pending Test Test Name Order Date GI BIOPSY 07/06/2018 Future Test Test Name Order Date COLONOSCOPY 04/11/2018 Insurance Providers Payer Name Payer Address Payer Phone Subscriber Number Group Number Insured Name Patient Relationship to Insured Coverage Start Date Coverage End Date [facility] PROFESSIONAL CLAIMS [address] [place] [address] [id number] KELSEY Self - patient is the insured Medical (General) History Medical History History ICD Code Denies [place],DM,CVA,Lung disease,renal dise ase
--- OUTSIDE RECORDS SUMMARY | 2025-04-30 09:00 | XMS_ITS | Clinical Summary ---
Author Organization [facility] Address [address] [place] [address] Care Team Providers Care Bathing Suit Maker Name Role Phone Unknown Primary Care Provider [phone] Allergies No known active allergies Social History Tobacco Use Types Packs/Day Years Used Date Smoking Tobacco: Never Assessed Sex and Gender Information Value Date Recorded Sex Assigned at Not on file Legal Sex Male 3:24 PM EST Gender Identity Not on file Sexual Orientation Not on file Last Filed Vital Signs Vital Sign Reading Time Taken Comments Blood Pressure 175/86 09/14/2020 8:16 PM EST Pulse 96 09/14/2020 8:16 PM EST Temperature 36.7 C (98.1 F) 09/14/2020 8:16 PM EST Respiratory Rate 18 09/14/2020 8:16 PM EST Oxygen Saturation 99% 09/14/2020 8:16 PM EST Inhaled Oxygen Concentration - - Weight - - Height - - Body Mass Index - - Plan of Treatment Health Maintenance Due Date Last Done Comments Hepatitis C Virus Screening 1967 HIV Screening 1980 DTaP/Tdap/Td Vaccines (1 - Tdap) 1986 Hepatitis B Vaccines (1 of 3 - 19+ 3-dose series) 09/29 Colonoscopy 2012 Pneumococcal Vaccines 50+ (1 of 1 - PCV) 2017 Zoster (Shingles) Vaccine (1 of 2) 2017 COVID-19 Vaccine (1 - 2023- season) 2024 Influenza Vaccine 03/29/2025 Insurance BLUE CROSS OUT OF STATE - HMO Care Teams Bathing Suit Maker Relationship Specialty Start Date End Date Unknown Unknow Provider Address PCP - General 09/14/20
== END 2025-04-30 09:05 | disposition home or self-care (01) ==
LOC: HO.HMCHD 08:22
PROVIDERS: PCP Internal Medicine; Visit Provider Physician Assistant
DX: Z00.00 Encounter for general adult medical examination without abnormal findings (principal); E78.00 Pure hypercholesterolemia, unspecified; E55.9 Vitamin D deficiency, unspecified; S46.211A Strain of muscle, fascia and tendon of other parts of biceps, right arm, initial encounter; G47.00 Insomnia, unspecified; F10.10 Alcohol abuse, uncomplicated; I10 Essential (primary) hypertension

== ENCOUNTER → 2025-04-30 08:21 | Outpatient (BNVA) | payer BC, SELFPAY | PROVIDERS: PCP Internal Medicine; Visit Provider Physician Assistant | DX: Z00.00 Encounter for general adult medical examination without abnormal findings (principal); E78.00 Pure hypercholesterolemia, unspecified; E55.9 Vitamin D deficiency, unspecified; G47.00 Insomnia, unspecified; F10.10 Alcohol abuse, uncomplicated; I10 Essential (primary) hypertension; S46.211A Strain of muscle, fascia and tendon of other parts of biceps, right arm, initial encounter; Z79.899 Other long term (current) drug therapy; X58.XXXA Exposure to other specified factors, initial encounter; Y93.9 Activity, unspecified; Y92.9 Unspecified place or not applicable; Y99.9 Unspecified external cause status; Z13.31 Encounter for screening for depression | CPT/HCPCS: 96127 ==

== ENCOUNTER 2025-05-03 07:24 | Outpatient (REF) | payer BC, SELFPAY ==
--- OUTSIDE RECORDS SUMMARY | 2025-05-03 07:26 | XMS_ITS | Patient Health Record ---
Author Organization [facility] Address [address] [place] [address] Care Team Providers Care Animal Ecologist Name Role Phone Christine (RETIRED) Ziggy TOTH Primary Care Provide r Unavailable Kulwinder Newberry Unavailable [phone] Reason For Referral No Information Medications Medication [...] Problem Status W/U Status Risk Notes Problem [id number] Encounter for screening for malignant neoplasm of colon (Z12.11) Active confirmed Problem [id number] Preprocedural examination (Z01.818) Active confirmed Plan Of Treatment Pending Test Test Name Order Date GI BIOPSY 07/06/2018 Future Test Test Name Order Date COLONOSCOPY 04/11/2018 Insurance Providers Payer Name Payer Address Payer Phone Subscriber Number Group Number Insured Name Patient Relationship to Insured Coverage Start Date Coverage End Date [facility] [place] BCBS PROFESSIONAL CLAIMS [address] [place] [address] [id number] KELSEY Self - patient is the insured Medical (General) History Medical History History ICD Code Denies [place],DM,CVA,Lung disease,renal dise ase
--- OUTSIDE RECORDS SUMMARY | 2025-05-03 07:26 | XMS_ITS | Clinical Summary ---
Author Organization [facility] Address [address] [place] [address] Care Team Providers Care Gear Hobber Name Role Phone Unknown Primary Care Provider [phone] Allergies No known active allergies Social History [...] OUT OF STATE - HMO Care Teams Gear Hobber Relationship Specialty Start Date End Date Unknown Unknow Provider Address PCP - General 09/14/20
[2025-05-03 10:50] LABS: MANUAL DIFF FLAG NO
[2025-05-03 10:57] LABS: Hematocrit 41.9 % (42.0-52.0); Hemoglobin 14.7 g/dl (14.0-18.0); Imm Gran Abs Auto 0.03 X10*3/uL (0.00-0.03); Imm Gran Pct Auto 0.4 % (0.0-0.4); Lymphocytes Absolute Auto 1.3 X10*3/uL (1.2-4.9); Mean Corpuscular HGB Conc 35.1 g/dl (31.0-36.0); Mean Corpuscular Hemoglobin 31.8 pg (27.0-33.0); Mean Corpuscular Volume 90.7 fL (80.0-98.0); NRBC Abs Auto 0.000 X10*3/uL (0.0-0.012); NRBC Pct Auto 0.0 /100WBC (0.0-0.2); Platelet Count 274 X10*3/uL (160-400); Red Blood Count 4.62 X10*6/uL (4.60-5.80); White Blood Count 6.7 X10*3/uL (4.8-10.8)
[2025-05-03 11:23] LABS: Alanine Aminotransferase 49 U/L (0-40); Albumin Level 4.6 g/dL (3.5-5.0); Alkaline Phosphatase 58 U/L (39-117); Anion Gap 13 (12-20); Aspartate Amino Transferase 37 U/L (5-37); Blood Urea Nitrogen 13 mg/dL (9-16); Calcium 9.4 mg/dL (8.4-10.2); Carbon Dioxide 24 mmol/L (22-29); Chloride 108 mmol/L (96-108); Cholesterol 240 mg/dL (<200); Estimated Glomerular Filt Rate > 60; HDL Cholesterol 57 mg/dL (>40); Potassium 4.9 mmol/L (3.3-5.1); Sodium 140 mmol/L (135-145); Total Protein 6.8 g/dL (6.5-8.0); Triglycerides 130 mg/dL (<150)
[2025-05-03 11:39] LABS: Prostate Specific Antigen 1.33 ng/mL (<0.05-4.0)
== END 2025-05-03 07:25 | disposition home or self-care (01) ==
LOC: HO.10HDL 07:24
PROVIDERS: Visit Provider Physician Assistant
DX: Z00.00 Encounter for general adult medical examination without abnormal findings (principal); Z12.5 Encounter for screening for malignant neoplasm of prostate; E78.00 Pure hypercholesterolemia, unspecified; E55.9 Vitamin D deficiency, unspecified
CPT/HCPCS: 36415; 80048; 80061; 80076; 82306; 84153; 85025

== ENCOUNTER 2025-05-08 16:53 | Outpatient (AMB) | payer BC, SELFPAY ==
[2025-05-08 16:58] VITALS: BP 140/80; PULSE 93; TEMP 38.1; O2SAT 96; BMI 28.6
--- NOTE | 2025-05-08 16:58 | A.OFFPC_ITS ---
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 Accompanied by: Self / Same As Patient Allergies Poison Gabby Allergy (Mild, Uncoded 05/08/25 16:58) Hives Medication List - Last Reconciled 05/08/25 by SAMSON Styles atorvastatin (Lipitor) 80 mg PO DAILY azithromycin (Zithromax Z-Leo) For 250 mg dose pack: take 500 mg today (day 1), then 250 mg for 4 days (days 2-5) PO losartan 25 mg PO BEDTIME sildenafil 25 mg PO DAILY PRN trazodone 25 - 50 mg (0.5 - 1 x 50 mg) PO BEDTIME PRN Tobacco use date assessed: 05/08/25 Dental Screening Dental Screen Date: 05/08/25 Did you have a dental visit in the last 12 months?: Yes Did you have a dental problem in the last 6 months where you did not have access to dental care?: No HPI HPI Comments History of Present Illness Details The patient is a 59-year-old male presenting in urgent visit with cough, congestion, and fever for the past 8-9 days. Symptoms began with cough and congestion, worsening by Tuesday with excessive coughing. Fever of 99.8?F developed after rain exposure, with increased exhaustion and difficulty sleeping. Cough was initially productive, later dry. Weakness and cognitive difficulty noted by Tuesday. NyQuil and DayQuil used with some relief. Patient also reports generalized headache. [facility] Medical History (Updated 05/08/25 @ 17:58 by SAMSON Styles) Acute bronchitis Fatigue GERD (gastroesophageal reflux disease) History of colon polyps Hypercholesteremia Hypertension Vitamin D deficiency Surgical History History of colonoscopy (~07/06/18) S/P rotator cuff repair Family History Mother No pertinent past medical history Paternal Grandfather Lung cancer Father No pertinent past medical history Social History Housing: House Patient Tobacco Use Status: Never used Tobacco e-Cigarette/Vaping Use: Never Used service: Yes ([employer]) Current occupational status: employed Current occupation: bank, [employer] right hand dominant Cognitive needs: No Hearing needs: No Vision needs: Yes (Reading glasses) Questionnaire PHQ-9 Over the last 2 weeks, how often have you been bothered by any of the following problems? 1. Little interest or pleasure in doing things: not at all 2. Feeling down, depressed, or hopeless: not at all 3. Trouble falling or staying asleep, or sleeping too much: not at all 4. Feeling tired or having little energy: not at all 5. Poor appetite or overeating: not at all 6. Feeling bad about yourself - or that you are a failure or have let yourself or your family down: not at all 7. Trouble concentrating on things, such as reading the newspaper or watching television: not at all 8. Moving or speaking so slowly that other people could have noticed. Or the opposite - being so fidgety or restless that you have been moving around a lot more than usual: not at all 9. Thoughts that you would be better off or of hurting yourself in some way: not at all Total score: 0 Source: Developed by Drs. Kulwinder Mccord, Concepción Hernandez, Long Sinclair and colleagues, with an educational byron from [employer]. Thrive Questionnaire Date Thrive assessed: 05/08/25 I am a: Patient Within the past 12 months, did the food you bought not last and you didn't have the money to get more?: Never true Within the past 12 months, did you worry whether your food would run out before you got money to buy more?: Never true Do you have trouble paying for medicines?: No Do you have trouble getting transportation to medical appointments?: No Do you have trouble paying your heating and electricity bill?: No Do you have trouble taking care of your child, family member or friend?: No Do you have trouble with day-to-day activities such as bathing, preparing meals, shopping, managing finances, etc.?: No Are you currently unemployed and looking for a job?: No Are you interested in more education?: No THRIVE Score: 0 AUDIT C Alcohol Use Questionnaire (AUDIT-C) 1. How often do you have a drink containing alcohol?: Monthly or less 2. How many drinks containing alcohol do you have on a typical day when you are drinking?: 1 or 2 3. How often do you have six or more drinks on one occasion?: Less than monthly Total Score: 2 PETER-7 AMB Questionnaire PETER-7 Date PETER - 7 assessed: 05/08/25 Feeling nervous, anxious, or on edge: 0 = Not at all Not being able to stop or control worryin = Not at all Worrying too much about different things: 0 = Not at all Trouble relaxin = Not at all Being so restless that it is hard to sit still: 0 = Not at all Becoming easily annoyed or irritable: 0 = Not at all Feeling afraid as if something awful might happen: 0 = Not at all Total PETER-7 score (0-4 normal; 5-9 mild; 10-14 moderate; 15-21 severe): 0 Source: Developed by Drs. Kulwinder Mccord, Concepción Hernandez, Long Sinclair and colleagues, with an educational byron from [employer]. Review of Systems Const Details: CONSTITUTIONAL Reports fever, fatigue, and myalgia HEAD/NECK Headaches EAR/NOSE/MOUTH/THROAT nasal congestion No ear pain No sore throat No sinus pain RESPIRATORY Reports cough and congestion. Denies shortness of breath except on exertion. CARDIOVASCULAR Negative GASTROINTESTINAL Negative NEUROLOGICAL Negative PSYCHIATRIC Negative Physical exam (Primary Care) Vital Signs: Last Vital Signs Temp 100.5 F H 05/08/25 16:58 Pulse 93 05/08/25 16:58 BP 140/80 H 05/08/25 16:58 Pulse Ox 96 05/08/25 16:58 Oxygen Delivery Method Room Air 05/08/25 16:58 BMI result Body Mass Index 28.6 GENERAL Well developed, Well nourished, in no apparent distress HEENT Head-Normocephalic Eyes- PERRLA, EOMI, Conjuctiva clear, lids WNL Ears- Canals clear, TMs WNL Mouth/Throat-No lesions, no erythema, no exudate Neck- Supple, No lymphadenopathy, thyroid WNL RESPIRATORY Normal I:E, Rhonchi without rales or wheezes CARDIOVASCULAR Regular, rate and rhythm, No murmurs or rubs GASTROINTESTINAL Soft, nontender, normal bowel sounds, no masses NEUROLOGICAL Gait normal PSYCHIATRIC Oriented to person, place and time Mood and affect WNL Appearance WNL Speech WNL Thought processes WNL Tobacco/Smoking Status: Tobacco use Status Tobacco use date assessed 05/08/25 05/08/25 16:59 Patient Tobacco Use Status Never used Tobacco 05/08/25 16:59 e-Cigarette/Vaping Use Never Used 05/08/25 16:59 PHQ-9: PHQ-9 Score PHQ-9: Total score 0 05/08/25 16:59 Thrive Assessment: Date of Thrive Assessment Date Thrive assessed 05/08/25 05/08/25 16:59 Coding Level of Care Code Established Pt Est Pt Level 3 (60630) Patient Type Established Diagnoses Acute bronchitis, unspecified organism J20.9 Bronchitis organism: unspecified organism Time Spent (min) 25 Comment Time spent on H&P, patient education, and placing orders Assessment & Plan Assessment & Plan (1) Acute bronchitis: Code(s): J20.9 - Acute bronchitis, unspecified Category: Medical Qualifiers: Bronchitis organism: unspecified organism Qualified Code(s): J20.9 - Acute bronchitis, unspecified Plan: Will treat with Zithromax. Patient was encouraged to increase fluid intake. Patient to follow up as needed if symptoms persist or worsen. fluid intake Plan I discussed with the patient that the symptoms are consistent with bronchitis and prescribed Zithromax for treatment. I advised monitoring symptoms and returning if there is no improvement in two to three days, or if new symptoms such as chest pain develop, at which point a chest x-ray may be necessary. I emphasized the importance of rest, hydration, and symptomatic relief measures. Medications: New azithromycin (Zithromax Z-Leo) For 250 mg dose pack: take 500 mg today (day 1), then 250 mg for 4 days (days 2-5) PO 6 tabs 0RF for bronchitis Patient Instructions: - Take Zithromax as prescribed: two pills today, then one pill daily for four days. - Rest and stay hydrated. - Use ekbr-tzd-yqvzohs medications for symptom relief as needed. - Monitor symptoms and contact the clinic if no improvement in two to three days or if new symptoms develop.
--- OUTSIDE RECORDS SUMMARY | 2025-05-08 18:45 | XMS_ITS | Clinical Summary ---
Author Organization [facility] Address [address] [place] [address] Care Team Providers Care Bundle Tier Name Role Phone Unknown Primary Care Provider [phone] Allergies No known active allergies Social History [...] OUT OF STATE - HMO Care Teams Bundle Tier Relationship Specialty Start Date End Date Unknown Unknow Provider Address PCP - General 09/14/20
--- OUTSIDE RECORDS SUMMARY | 2025-05-08 18:45 | XMS_ITS | Patient Health Record ---
Author Organization [facility] Address [address] [place] [address] Care Team Providers Care Recovery Room Nurse Name Role Phone Christine (RETIRED) Ziggy TOTH Primary Care Provide r Unavailable Kulwinder Newberry Unavailable [phone] Reason For Referral No Information Medications Medication [...] Problem Status W/U Status Risk Notes Problem [id number] Encounter for screening for malignant neoplasm of colon (Z12.11) Active confirmed Problem [id number] Preprocedural examination (Z01.818) Active confirmed Plan Of Treatment Pending Test Test Name Order Date GI BIOPSY 07/06/2018 Future Test Test Name Order Date COLONOSCOPY 04/11/2018 Insurance Providers Payer Name Payer Address Payer Phone Subscriber Number Group Number Insured Name Patient Relationship to Insured Coverage Start Date Coverage End Date [facility] BLUE BCBS PROFESSIONAL CLAIMS [address] [place] [address] [id number] KELSEY Self - patient is the insured Medical (General) History Medical History History ICD Code Denies [place],DM,CVA,Lung disease,renal dise ase
== END 2025-05-08 17:19 | disposition home or self-care (01) ==
LOC: HO.HMCHD 16:53
PROVIDERS: PCP Physician Assistant; Visit Provider Physician Assistant Medical
DX: J20.9 Acute bronchitis, unspecified (principal)

== ENCOUNTER 2025-05-15 08:03 | Outpatient (REF) | payer BC, SELFPAY ==
--- NOTE | ~2025-05-15 | XR_ITS ---
EXAMINATION: XR SHOULDER, RIGHT CLINICAL INFORMATION: S46.219A - Strain of muscle, fascia and tendon of other parts of biceps,... COMPARISON: January 01, 2009 TECHNIQUE: AP external rotation, Grashey, scapular Y, and axillary views of the right shoulder. FINDINGS: Inadequate axillary projection. There are 3 radiopaque anchors at the right humeral surgical neck. There is a Hill-Sachs deformity. No gross acute fracture or dislocation. No lytic or blastic lesions. No soft tissue calcifications. XR/XR shoulder RT min 2V IMPRESSION: Post surgical/treatment changes rotator cuff tendon tear without acute fracture or dislocation.. Electronically signed by: Leodan Valdivia MD 05/15/2025 09:23 AM EDT
--- OUTSIDE RECORDS SUMMARY | 2025-05-15 10:11 | XMS_ITS | Patient Health Record ---
Author Organization [facility] Address [address] [place] [address] Care Team Providers Care Dental Prosthetist Name Role Phone Christine (RETIRED) Ziggy TOTH Primary Care Provide r Unavailable Kulwinder Newberry Unavailable [phone] Reason For Referral No Information Medications Medication [...] Problem Status W/U Status Risk Notes Problem [id number] Encounter for screening for malignant neoplasm of colon (Z12.11) Active confirmed Problem [id number] Preprocedural examination (Z01.818) Active confirmed Plan Of Treatment Pending Test Test Name Order Date GI BIOPSY 07/06/2018 Future Test Test Name Order Date COLONOSCOPY 04/11/2018 Insurance Providers Payer Name Payer Address Payer Phone Subscriber Number Group Number Insured Name Patient Relationship to Insured Coverage Start Date Coverage End Date [facility] BLUE BCBS PROFESSIONAL CLAIMS [address] [place] [address] [id number] KELSEY Self - patient is the insured Medical (General) History Medical History History ICD Code Denies [place],DM,CVA,Lung disease,renal dise ase
--- OUTSIDE RECORDS SUMMARY | 2025-05-15 10:11 | XMS_ITS | Clinical Summary ---
Author Organization [facility] Address [address] [place] [address] Care Team Providers Care Critical Care Paramedic Name Role Phone Unknown Primary Care Provider [phone] Allergies No known active allergies Social History [...] Zoster (Shingles) Vaccine (1 of 2) 2017 Influenza Vaccine 03/29/2025 COVID-19 Vaccine ( - season) 2025 Insurance BLUE CROSS OUT OF STATE - HMO Care Teams Critical Care Paramedic Relationship Specialty Start Date End Date Unknown Unknow Provider Address PCP - General 09/14/20
== END 2025-05-15 08:04 | disposition home or self-care (01) ==
LOC: HO.XRAY 08:03
PROVIDERS: PCP Physician Assistant; Visit Provider Physician Assistant
DX: S46.219A Strain of muscle, fascia and tendon of other parts of biceps, unspecified arm, initial encounter (principal); E78.00 Pure hypercholesterolemia, unspecified; G47.00 Insomnia, unspecified; I10 Essential (primary) hypertension; J40 Bronchitis, not specified as acute or chronic
CPT/HCPCS: 73030

== ENCOUNTER 2025-05-15 08:03 | Outpatient (AMB) | payer BC, SELFPAY ==
--- NOTE | 2025-05-15 08:07 | MHC.PC.OV ---
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 Works a [employer] as well as a [employer]. Working about 50 hours per work and is unable to reduce hours to to financials. He does greatly enjoy hiking but is unable to do this as much as he would like due to his work hours. He reports he does follow a healthy diet, making most of his meals. He does consume alcohol in excess, 20 beers per week, typically with the majority of his alcohol consumed on the weekends, up to 6 beers and a setting. No history of cigarette smoking. No illicit drug use or marijuana use. Cough- Initially URI, about 2 weeks ago. Somewhat improved but now with dry, higher in throat, deeper in the afternoon. Had Cough becomes more productive. Less fatigued. No ongoing fevers. No hx asthma. No sob, wheezing. No ongoing fevers HTN- started losartan 25mg about 2 weeks ago, no adverse effects. Blood pressure on recheck 136/86. Erectile dysfunction-he reports that he has sildenafil but has not been active sexually recently Elevated blood pressures-no prior history of hypertension. However initial blood pressure 180/104 and repeat 154/90 on manual recheck. Hyperlipidemia-compliant with atorvastatin Vitamin-D deficiency-not taking supplement. Insomnia-started on trazodone, has been taking 50 mg of reports he feels groggy the next day. Concerns: Lump of the right breast. Noticed years ago. No change Health maintenance: Last screening colonoscopy 06/2018 with 5 year follow-up advised. Dr. Newberry ROS: see hpi EXAM: Constitutional - Awake and Alert, No apparent distress Eyes - PERRL Cardiovascular - S1S2, RRR, No edema Respiratory - Normal lung expansion, Normal respiratory effort, No respiratory distress, CTA bilaterally Extremities - no calf tenderness bilaterally, no swelling Skin - Warm/Dry. 5mm papule/nevus R breast, nontender. No erythema Neurological - Alert & oriented x3 Psychological - Appropriate affect [facility] Medical History (Updated 05/15/25 @ 08:43 by SAMSON Mckoy) Acute bronchitis Hypertension Vitamin D deficiency Fatigue Hypercholesteremia History of colon polyps GERD (gastroesophageal reflux disease) Surgical History S/P rotator cuff repair History of colonoscopy (~07/06/18) Family History Mother No pertinent past medical history Paternal Grandfather Lung cancer Father No pertinent past medical history Social History Housing: House Patient Tobacco Use Status: Never used Tobacco e-Cigarette/Vaping Use: Never Used service: Yes ([employer]) Current occupational status: employed Current occupation: [employer] right hand dominant Cognitive needs: No Hearing needs: No Vision needs: Yes (Reading glasses) Questionnaire Thrive Questionnaire Date Thrive assessed: 05/08/25 PETER-7 AMB Questionnaire PETER-7 Date PETER - 7 assessed: 05/08/25 Source: Developed by Drs. Kulwinder Mccord, Concepción Hernandez, Long Sinclair and colleagues, with an educational byron from [employer]. Physical exam (Primary Care) Vital Signs: Last Vital Signs Temp 97.6 F 05/15/25 08:10 Pulse 63 05/15/25 08:10 Resp 16 05/15/25 08:10 BP 136/86 05/15/25 08:33 Pulse Ox 99 05/15/25 08:10 Oxygen Delivery Method Room Air 05/15/25 08:10 BMI result Body Mass Index 29.1 Tobacco/Smoking Status: Tobacco use Status Tobacco use date assessed 05/08/25 05/15/25 08:12 Patient Tobacco Use Status Never used Tobacco 05/15/25 08:12 e-Cigarette/Vaping Use Never Used 05/15/25 08:12 Thrive Assessment: Date of Thrive Assessment Date Thrive assessed 05/08/25 05/15/25 08:12 Coding Level of Care Code Est Pt Level 4 (19676) Complex EM visit Add On G2211 Diagnoses Hypercholesteremia E78.00 Biceps tendon tear S46.219A Insomnia G47.00 Hypertension I10 Bronchitis J40 Assessment & Plan Assessment & Plan (1) Hypercholesteremia: Code(s): E78.00 - Pure hypercholesterolemia, unspecified Category: Medical Plan: Continue atorvastatin. Given instructions on diet. Repeat lipid profile in 4 weeks (2) Biceps tendon tear: Code(s): S46.219A - Strain of muscle, fascia and tendon of other parts of biceps, unspecified arm, initial encounter Category: Medical Plan: Advised to have x-ray of the shoulder performed so that orthopedics appointment can be made (3) Insomnia: Code(s): G47.00 - Insomnia, unspecified Category: Medical Plan: Advised to try half dose of trazodone (4) Hypertension: Code(s): I10 - Essential (primary) hypertension Category: Medical Plan: Controlled. Continue losartan 25 mg daily (5) Bronchitis: Code(s): J40 - Bronchitis, not specified as acute or chronic Category: Medical Plan: Completed course of azithromycin. Prescribed albuterol inhaler to use as needed for wheezing or cough. Consult on use. Can also use Robitussin DM Plan Follow-up in the office in 2 weeks for blood pressure check and follow-up on insomnia Routine screening labs as ordered below Continue with screening colonoscopies and PSA Continue following for annual skin exams and use sun protection Annual eye exams Wear seat belt in car Recommend regular exercise and healthy diet Dental exams twice yearly Orders: Orders Lipid Panel 4 Months E78.00 - Pure hypercholesterolemia, unspecified Medications: New albuterol sulfate 90 mcg/actuation (Ventolin HFA) 2 puffs inhalation Q4-6H PRN 8.5 grams 0RF shortness of breath or wheezing or cough
[2025-05-15 08:10] VITALS: BP 140/94; PULSE 63; RESP 16; TEMP 36.4; O2SAT 99; BMI 29.1
[2025-05-15 08:33] VITALS: BP 136/86
== END 2025-05-15 08:39 | disposition home or self-care (01) ==
LOC: HO.HMCHD 08:03
PROVIDERS: PCP Physician Assistant; Visit Provider Physician Assistant
DX: E78.00 Pure hypercholesterolemia, unspecified (principal); S46.219A Strain of muscle, fascia and tendon of other parts of biceps, unspecified arm, initial encounter; G47.00 Insomnia, unspecified; I10 Essential (primary) hypertension; J40 Bronchitis, not specified as acute or chronic

== ENCOUNTER → 2025-05-15 08:54 | Outpatient (BNV) | payer BC, SELFPAY | PROVIDERS: PCP Physician Assistant; Visit Provider Radiology Diagnostic Radiology | DX: Z96.611 Presence of right artificial shoulder joint (principal); Z47.1 Aftercare following joint replacement surgery | CPT/HCPCS: 73030 ==